=== PATIENT | female | born 1970 | race Caucasian/White ===

== ENCOUNTER 2017-03-16 06:55 | Emergency (ER) | payer BC ==
--- NOTE | 2017-03-16 08:07 | ED ---
General Adult HPI - General Chief complaint: Dental/Oral Stated complaint: dental pain Time Seen by Provider: 03/16/17 07:40 Source: patient, RN notes reviewed Mode of arrival: ambulatory Limitations: no limitations - History of Present Illness Initial comments: Patient is a pleasant 46-year-old female presenting to the emergency department dental pain. Onset was around 3 in the morning. Patient has pain right lower tooth that radiates towards the head and neck. Patient tried Tylenol and Motrin without improvement. Patient has known dental problem however has not had taking care of recently. Patient did have some paresthesias as well. - Related Data Home Medications Medication Instructions Recorded Confirmed Acetaminophen [Tylenol Extra 1,000 mg PO TID PRN 03/16/17 03/16/17 Strength] Ibuprofen [Motrin] 600 mg PO TID PRN 03/16/17 03/16/17 L.acidoph,Paracasei, B.lactis 1 cap PO DAILY 03/16/17 03/16/17 [Probiotic] Multivitamin with Iron 1 tab PO DAILY 03/16/17 03/16/17 [Multivitamins with Iron] Naproxen 500 mg PO BID PRN 03/16/17 03/16/17 [place]-3 Fatty Acids/Fish Oil [Fish 1 cap PO DAILY 03/16/17 03/16/17 Oil 1,000 mg Softgel] Ubidecarenone [Co Q-10] 100 mg PO DAILY 03/16/17 03/16/17 Previous Rx's Medication Instructions Recorded Acetaminophen-Codeine 300-30mg 1 each PO Q4H PRN #12 tablet 03/16/17 [Tylenol #3] Penicillin V Potassium [Pen Vee K] 500 mg PO QID #40 tablet 03/16/17 Allergies Allergy/AdvReac Type Severity Reaction Status Date / Time No Known Allergies Allergy Verified 03/16/17 07:08 Review of Systems ROS Statement: Those systems with pertinent positive or pertinent negative responses have been documented in the HPI. Constitutional: Denies: fever Eyes: Denies: eye pain ENT: Denies: ear pain Respiratory: Denies: cough Cardiovascular: Denies: chest pain Endocrine: Denies: fatigue Gastrointestinal: Denies: abdominal pain Skin: Denies: rash Neurological: Denies: weakness Past Medical History Past Medical History: No Reported History History of Any Multi-Drug Resistant Organisms: None Reported Past Surgical History: Tubal Ligation Past Psychological History: No Psychological Hx Reported Smoking Status: Former smoker Past Alcohol Use History: Rare Past Drug Use History: None Reported General Exam Limitations: no limitations General appearance: alert, in no apparent distress Head exam: Present: atraumatic Eye exam: Present: normal appearance, PERRL ENT exam: Present: other (Right lower molar with evidence of decay. No surrounding swelling. There is tenderness to exam with tongue depressor) Neck exam: Present: normal inspection Respiratory exam: Present: normal lung sounds bilaterally Cardiovascular Exam: Present: regular rate, normal rhythm Extremities exam: Present: normal inspection Neurological exam: Present: alert Psychiatric exam: Present: normal affect, normal mood Skin exam: Present: normal color Course Vital Signs 03/16/17 06:58 Temperature 99.1 F Pulse Rate 103 H Respiratory 20 Rate Blood Pressure 228/103 O2 Sat by Pulse 99 Oximetry Procedures - Nerve Block Consent Obtained: verbal consent Time Out Performed: Yes Local Anesthetic Used: Lidocaine 1% Side: right Intraoral Nerve Block: supraperiosteal Complications: none Disposition Clinical Impression: Toothache Disposition: HOME SELF-CARE Condition: Stable Instructions: Toothache (ED) Additional Instructions: Please follow-up with dentist in the next day or 2 for recheck. Please also follow-up to primary care physician. Return for swelling, fever, worsening symptoms or other concerns. Prescriptions: Acetaminophen-Codeine 300-30mg [Tylenol #3] 1 each PO Q4H PRN #12 tablet PRN Reason: Pain Penicillin V Potassium [Pen Vee K] 500 mg PO QID #40 tablet Referrals: Dennis Bejarano MD [Primary Care Provider] - 1-2 days Time of Disposition: 08:06
[2017-03-16 08:35] VITALS: BP 164/84; PULSE 90; RESP 18; TEMP 99.2
== END 2017-03-16 08:14 | disposition home or self-care (01) ==
LOC: EC 06:55
DX: K08.89 Other specified disorders of teeth and supporting structures (principal); Z87.891 Personal history of nicotine dependence; Z79.899 Other long term (current) drug therapy
CPT/HCPCS: 64400; 99282